=== PATIENT | female | born 1985 | race Caucasian/White ===

== ENCOUNTER 2019-07-13 14:27 | Emergency (ER) | payer BC ==
[~2019-07-13] VITALS: Ht 172.7 cm; Wt 94.5 kg
[2019-07-13 14:42] VITALS: BP 132/81; TEMP 97.8
[2019-07-13] MEDS ORDERED: EFFEXOR-XR150 MG PO (14:47)
[2019-07-13] MEDS ORDERED: TOPAMAX 100MG100 M1 PO (14:47)
[2019-07-13 15:42] LABS: BASO # 0.1 (0.0-0.2); BASO % 0.3 % (0.0-2.0); EOS % 0.3 % (0-4.0); GRAN # 12.6 (1.4-6.5); GRAN % 84.7 % (42.2-75.2); HEMATOCRIT 38.8 % (37.0-47.0); HEMOGLOBIN 12.9 g/dl (12.5-16.0); LYMPH # 1.5 (1.2-3.4); LYMPH % 10.3 % (20.0-51.0); MEAN CELL VOLUME 87 fl (80.0-100.0); MEAN CORPUSCULAR HEMOGLOBIN 29 pg (27.0-31.0); MEAN CORPUSCULAR HGB CONC 33 g/dl (33.0-37.0); MEAN PLATELET VOLUME 9.8 fl (7.4-10.4); MONO # 0.6 (0.1-0.6); PLATELET COUNT 327 K/mm3 (130-400); RED BLOOD COUNT 4.44 M/mm3 (4.10-5.30); REDCELL DISTRIBUTION WIDTH-CV 11.9 % (11.5-14.5)
[2019-07-13 15:55] LABS: ALANINE AMINOTRANSFERASE 25 U/L (4-34); ALBUMIN 4.7 gm/dL (3.5-5.0); ALKALINE PHOSPHATASE 97 U/L (50-136); ANION GAP 10 mmol/L (7-16); AST,SGOT 27 U/L (15-37); BILIRUBIN,TOTAL 0.3 mg/dL (0.0-1.0); BLOOD UREA NITROGEN 14 mg/dL (7-17); CALCIUM 9.4 mg/dL (8.4-10.2); CARBON DIOXIDE 22 mmol/L (22-30); CHLORIDE 107 mmol/L (98-107); CREATININE, serum 0.95 (0.52-1.25); GLUCOSE 100 mg/dL (74-106); LIPASE 171 U/L (23-300); POTASSIUM 4.2 mmol/L (3.4-5.0); SODIUM 139 mmol/L (137-145); TOTAL PROTEIN 7.7 gm/dL (6.4-8.2)
[2019-07-13 15:57] LABS: C-REACTIVE PROTEIN < 0.5 mg/dL (0.0-0.9)
[2019-07-13 17:14] VITALS: PULSE 109
== END 2019-07-13 17:14 | disposition home or self-care (01) ==
LOC: COL.ER 14:27
PROVIDERS: Emergency Medicine
DX: K56.41 Fecal impaction (principal)

== ENCOUNTER → 2019-07-14 | Outpatient (CLI) | payer BC ==
[~2019-07-14] MED LIST: EFFEXOR-XR150 MG PO; TOPAMAX 100MG100 M1 PO
[2019-07-14 10:14] LABS: BASO % 0.4 % (0.0-2.0); EOS # 0.1 (0.0-0.7); EOS % 1.2 % (0-4.0); GRAN # 6.8 (1.4-6.5); GRAN % 70.8 % (42.2-75.2); HEMATOCRIT 39.7 % (37.0-47.0); HEMOGLOBIN 13.1 g/dl (12.5-16.0); LYMPH # 2.1 (1.2-3.4); LYMPH % 21.7 % (20.0-51.0); MEAN CELL VOLUME 88 fl (80.0-100.0); MEAN CORPUSCULAR HEMOGLOBIN 29 pg (27.0-31.0); MEAN CORPUSCULAR HGB CONC 33 g/dl (33.0-37.0); MEAN PLATELET VOLUME 10.2 fl (7.4-10.4); MONO # 0.5 (0.1-0.6); MONO % 5.7 % (1.7-9.3); PLATELET COUNT 358 K/mm3 (130-400); RED BLOOD COUNT 4.52 M/mm3 (4.10-5.30); REDCELL DISTRIBUTION WIDTH-CV 12.1 % (11.5-14.5)
== END ==
LOC: COL.RAD 09:15
PROVIDERS: Physician Assistant Medical
DX: K62.89 Other specified diseases of anus and rectum (principal); R10.9 Unspecified abdominal pain; Z87.19 Personal history of other diseases of the digestive system